=== PATIENT | female | born 2000 | race Hispanic/Latino ===

== ENCOUNTER 2024-08-18 21:31 | Emergency (ER) | payer OTHER ==
--- OUTSIDE RECORDS SUMMARY | 2024-08-18 21:34 | XMS REPORT | Continuity of Care Document ---
Author Name Unknown Address [address] [address] [place] [address] Organization [facility] [place] Address [address] [place] [address] Care Team Providers Care Barley Steeper Name Role Phone PCP, PATIENT DOES NOT HAVE A Primary Care Physic irene YAMEL Price Attending Clinician YAMEL Haddad Attending Clinician Kolton Neal Ang - Db Attending Clinician Yamel Price MD Attending Clinician [phone] Payers Payer Name Policy Type Policy Number Effective Date Expirati on Date Source [facility] [id number] 2024 00:00:00 Problems Condition Name Condition Details Condition Category Status Onset Date Resolution Date Last Treatment Date Treating Clinician Comments Source Bleeding in early Bleeding in early Disease Active 08-16 00:00: 00 [facility] with inconclusi ve viability, single or unspecifie d fetus with inconclusi ve viability, single or unspecifie d fetus Disease Active 08-16 00:00: 00 [facility] Allergies, Adverse Reactions, Alerts Allergy Name Allergy Type Status Severity Reaction(s) Onset Date Inactive Date Treating Clinician Comments Source NO KNOWN ALLERGIE S Drug Class Active [facility] Social History Social Habit Start Date Stop Date Quantity Comments Source [facility] use and exposure 2024-08-16 00:00:00 2024-08-16 00:00:00 Smokeless tobacco non-user [facility] Alcoholic beverage intake 2024-08-16 00:00:00 2024-08-16 00:00:00 Ex-drinker (finding) [facility] History of Social function 2024-08-16 00:00:00 2024-08-16 00:00:00 [facility] Sex assigned at 2000 00:00:00 2000 00:00:00 [facility] Smoking Status Start Date Stop Date Source Never smoked tobacco [facility] Encounters Start Date/Time End Date/Time Encounter Type Admission Type Attending [facility] Care Facility Care Department Encounter ID Source 2024-08-23 14:00:00 2024-08-23 14:00:00 Outpatient R GLADYS Aguilar, YAMEL IVETH-MARY S, YAMEL [facility] [id number] [facility] 2024-08-18 13:00:00 2024-08-18 13:15:00 Intensive Care Specialist Visit Lab, Ang - Db Iveth-Mary s, Yamel Lab, Ang - Db [facility] [id number] [facility] 2024-08-18 13:00:00 2024-08-18 13:00:00 Outpatient R GLADYS S, YAMEL LAZARO-MARY S, YAMEL [facility] [id number] [facility] 2024-08-17 00:00:00 2024-08-17 12:34:35 Telephone Iveth-Mary aguilar Yamel [facility] [id number] [facility] 2024-08-16 14:30:00 2024-08-16 14:37:49 Outpatient R IVETH-MARY S, YAMEL GLADYS YAMEL Aguilar [facility] [id number] [facility] Notes Date/Time Note Provider Source 2024-08-18 13:00:00 Images from the original note were not included. Venipuncture collection performed by clean technique on the left anticubitus. Total of 1 attempts were made. Slight pressure and a bandage/dressing were applied to the site(s). The patient experienced no complications. The following specimens were processed according to instructions and sent to [facility] laboratories per lab order on 08/18/2024 : LT BLUE SST 1 RED LAV PPT DK GREEN (LiHep) DK GREEN (SodH) ROLLINS DK BLUE (K2) DK BLUE (S) ACD Blood Culture NIPT/NTD [facility] 2024-08-17 12:33:05 Name and verified, pt is aware orders have been placed for repeat hcg testing. Lab appt made for 08/18 Pt verbalized understanding. Anna Rene RN 08/17/2024 12:34 PM [facility] 2024-08-17 11:06:08 Pt received a message on mychart from Yvette that she needs to repeat her HCG labs on but there are no orders for her to do that. Nishi Velazquez [facility]
[2024-08-18 22:52] LABS: Absolute Eosinophils 0.2 K/uL (0-0.5); Absolute Lymphocytes (CBC) 2.2 K/uL (0.7-4.9); Absolute Monocytes 0.5 K/uL (0.1-1.3); Absolute Neutrophil 4.7 K/uL (1.8-8.0); Basophils % 0.5 % (0-1.3); Eosinophils % 2.3 % (0-4.4); Hematocrit 39.9 % (36.0-45.0); Hemoglobin 13.6 g/dL (12.0-15.0); Lymphocytes % 28.4 % (15.3-44.8); MCH 31.5 pg (27.0-35.0); MCHC 34.1 g/dL (32.0-36.0); MCV 92.2 fL (80-100); MPV 7.9 fL (7.6-11.3); Monocytes % 6.6 % (3.3-12.3); Neutrophils % 62.2 % (41.7-73.7); Platelets 267 thou/uL (152-406); RBC Red Blood Cell Count 4.32 M/uL (3.86-4.86); Red Cell Distribution Width 12.8 % (12.1-15.2)
[2024-08-18 23:07] LABS: Specific Gravity 1.016 (1.005-1.030); Sqamous Epithelial <5 /HPF (None Seen); Urine Bacteria None Seen /HPF (<20); Urine Bilirubin NEGATIVE (Negative); Urine Blood 3+ (OVER) (Negative); Urine Clarity Turbid (Clear); Urine Color Light-Yellow (Yellow); Urine Culture Reflex Order NOT NEEDED; Urine Glucose NEGATIVE (Negative); Urine Ketones NEGATIVE (Negative); Urine Microscopic Reflex YN ORDER UMIC; Urine Nitrite NEGATIVE (Negative); Urine Protein NEGATIVE (Negative); Urine Urobilinogen Normal (Normal)
--- NOTE | 2024-08-19 00:28 | ER ---
Nurse's Notes [facility] Name: Mago Servin Age: 24 yrs Sex: Female : 2000 Arrival Date: 08/18/2024 Time: 21:31 Bed 6 Private MD: Diagnosis: First trimester vaginal bleeding Presentation: 08/18 22:06 Chief complaint: Patient states: I am 7 weeks and I started bleeding Thursday, jb4 and today around 1700 it started getting worse. Coronavirus screen: At this time, the client does not indicate any symptoms associated with coronavirus-19. Ebola Screen: No symptoms or risks identified at this time. Initial Sepsis Screen: Does the patient meet any 2 criteria? No. Patient's initial sepsis screen is negative. Does the patient have a suspected source of infection? No. Patient's initial sepsis screen is negative. Risk Assessment: Do you want to hurt yourself or someone else? Patient reports no desire to harm self or others. Onset of symptoms was August 18, 2024. Transition of care: patient was not received from another setting of care. 22:06 Method Of Arrival: Ambulatory jb4 22:06 Acuity: LAUREN 3 jb4 Triage Assessment: 22:08 General: Appears in no apparent distress. comfortable, Behavior is cooperative, jb4 anxious. Pain: Denies pain. Neuro: Level of Consciousness is awake, alert, obeys commands, Oriented to person, place, time, situation. Cardiovascular: Patient's skin is warm and dry. Respiratory: Airway is patent Respiratory effort is even, unlabored, Respiratory pattern is regular, symmetrical. : Reports vaginal bleeding that is bright red, with clots, moderate flow. Derm: Skin is intact, Skin is pink, warm \T\ dry. Musculoskeletal: Circulation, motion, and sensation intact. Range of motion: intact in all extremities. 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 - Infectious Disease History:: Denies. - Social history:: Smoking status: Patient denies any tobacco usage or history of. - Family history:: not pertinent. Screenin:32 [facility] ED Fall Risk Assessment (Adult) History of falling in the last 3 months, jr13 including since admission No falls in past 3 months (0 pts) Confusion or Disorientation Yes (5 pts) Intoxicated or Sedated Yes (3 pts) Impaired Gait Yes (1 pt) Mobility Assist Device Used No (0 pt) Altered Elimination No (0 pt) Score/Fall Risk Level 0 - 2 = Low Risk. Abuse screen: Denies threats or abuse. Denies injuries from another. Nutritional screening: No deficits noted. Tuberculosis screening: No symptoms or risk factors identified. Assessment: 22:32 General: Appears uncomfortable, Behavior is calm, cooperative, appropriate for age. jr13 22:36 Pain: Complains of pain in Lower abdomen area Pain at worst was 5 out of 10 on a pain jr13 scale. Pain began suddenly. 22:36 Neuro: No deficits noted. Level of Consciousness is Oriented to person, place, time, jr13 situation, Appropriate for age. Cardiovascular: Reports None Capillary refill < 3 seconds. Respiratory: Airway is patent. GI: Abdomen is round Reports lower abdominal pain, Patient reports lower abdominal pain and states she has some vaginal bleeding with clots. : No deficits noted. Vital Signs: 22:06 BP 141 / 78; Pulse 97; Resp 16; Temp 98.7(O); Pulse Ox 100% on R/A; Weight 86.64 kg jb4 (R); Height 5 ft. 2 in. (R); Pain 0/10; 22:30 BP 115 / 79; Pulse 101; Resp 18; Pulse Ox 100% on R/A; jr13 23:13 BP 116 / 67; Pulse 90; Resp 18 S; Pulse Ox 100% on R/A; br2 08/19 00:24 BP 99 / 55; Pulse 99; Resp 17; Pulse Ox 98% on R/A; jr13 08/18 22:06 Body Mass Index 34.93 (86.64 kg, 157.48 cm) jb4 08/18 22:06 Pain Scale: Adult jb4 ED Course: 08/18 21:37 Patient arrived in ED. gm2 21:55 Jesus Whiteside MD is Attending Physician. rt 22:08 Triage completed. jb4 22:08 Arm band placed on right wrist. jb4 22:32 Patient has correct armband on for positive identification. Placed in gown. Bed in low jr13 position. Call light in reach. Side rails up X 1. Adult w/ patient. Provided Education on:. Provided Education on:. 22:45 Basic Metabolic Panel Sent. jr13 22:45 CBC with Diff Sent. jr13 22:47 Quantitative Hcg Sent. jr13 22:48 Inserted saline lock: 22 gauge in right antecubital area, using aseptic technique. jr13 Blood collected. Flushed with 10 mL NS. 22:59 US Transvaginal Ob In Process Unspecified. EDMS 08/19 00:40 No provider procedures requiring assistance completed. IV discontinued, intact, jr13 bleeding controlled, No redness/swelling at site. Pressure dressing applied. Administered Medications: No medications were administered Medication: 08/18 22:32 VIS not applicable for this client. jr13 Outcome: 08/19 00:28 Discharge ordered by . rt 00:40 Discharged to home ambulatory, with family, jr13 00:40 Condition: stable 00:40 Discharge instructions given to patient, family, Instructed on discharge instructions, follow up and referral plans. Demonstrated understanding of instructions, follow-up care, 00:42 Patient left the ED. jr13 Signatures: Dispatcher [employer] EDDC Hima Mac, RN RN jb4 Jesus Whiteside MD MD rt Luciana Obrien gm2 Lauren Wan RN RN br2 Malathi Carson, RN RN jr13
--- NOTE | 2024-08-19 00:28 | EDPHYS ---
Physician Documentation [facility] Name: Mago Servin Age: 24 yrs Sex: Female : 2000 Arrival Date: 08/18/2024 Time: 21:31 Bed 6 Private MD: ED Physician Jesus Whiteside HPI: 08/19 00:09 This 24 yrs old Female presents to ER via Ambulatory with complaints of rt Vaginal Bleeding, 7 weeks preg. 00:09 Patient is roughly 7 weeks , felt vaginal bleeding starting last week, saw her rt OB, apparently watching it. States that the bleeding had worsened today with some mild lower abdominal cramping, passed a few clots. States that is less than a period. Denies urinary symptoms, other acute complaints, she states that her blood type is a positive. Symptoms are moderate severity, no other aggravating or alleviating factors.. 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 - Infectious Disease History:: Denies. - Social history:: Smoking status: Patient denies any tobacco usage or history of. - Family history:: not pertinent. ROS: 08/19 00:09 Constitutional: Negative for fever, chills, and weight loss, Cardiovascular: Negative rt for chest pain, palpitations, and edema, Respiratory: Negative for shortness of breath, cough, wheezing, and pleuritic chest pain, Abdomen/GI: Negative for abdominal pain, nausea, vomiting, diarrhea, and constipation, Skin: Negative for injury, rash, and discoloration, Neuro: Negative for headache, weakness, numbness, tingling, and seizure, : Positive for vaginal bleeding, Negative for urinary symptoms, Exam: 00:09 Constitutional: This is a well developed, well nourished patient who is awake, alert, rt and in no acute distress. Head/Face: Normocephalic, atraumatic. Chest/axilla: Normal chest wall appearance and motion. Nontender with no deformity. No lesions are appreciated. Cardiovascular: Regular rate and rhythm with a normal S1 and S2. No gallops, murmurs, or rubs. Normal PMI, no JVD. No pulse deficits. Respiratory: Lungs have equal breath sounds bilaterally, clear to auscultation and percussion. No rales, rhonchi or wheezes noted. No increased work of breathing, no retractions or nasal flaring. Abdomen/GI: Soft, non-tender, with normal bowel sounds. No distension or tympany. No guarding or rebound. No evidence of tenderness throughout. Skin: Warm, dry with normal turgor. Normal color with no rashes, no lesions, and no evidence of cellulitis. MS/ Extremity: Pulses equal, no cyanosis. Neurovascular intact. Full, normal range of motion. Neuro: Awake and alert, GCS 15, oriented to person, place, time, and situation. Cranial nerves II-XII grossly intact. Motor strength 5/5 in all extremities. Sensory grossly intact. Cerebellar exam normal. Normal gait. Vital Signs: 08/18 22:06 BP 141 / 78; Pulse 97; Resp 16; Temp 98.7(O); Pulse Ox 100% on R/A; Weight 86.64 kg jb4 (R); Height 5 ft. 2 in. (R); Pain 0/10; 22:30 BP 115 / 79; Pulse 101; Resp 18; Pulse Ox 100% on R/A; jr13 23:13 BP 116 / 67; Pulse 90; Resp 18 S; Pulse Ox 100% on R/A; br2 08/19 00:24 BP 99 / 55; Pulse 99; Resp 17; Pulse Ox 98% on R/A; jr13 08/18 22:06 Body Mass Index 34.93 (86.64 kg, 157.48 cm) jb4 08/18 22:06 Pain Scale: Adult jb4 MDM: 08/18 22:17 Medical Screening Exam initiated rt 08/19 01:06 Differential diagnosis: Threatened AB, inevitable AB, subchorionic hemorrhage. Data rt reviewed: vital signs, nurses notes, lab test result(s), radiologic studies. Counseling: I had a detailed discussion with the patient and/or guardian regarding the historical points, exam findings, and any diagnostic results supporting the discharge/admit diagnosis, lab results, radiology results, the need for outpatient follow up. 08/18 22:20 Order name: Basic Metabolic Panel; Complete Time: 23:32 rt 08/18 22:20 Order name: CBC with Diff; Complete Time: 23:32 rt 08/18 22:20 Order name: Quantitative Hcg; Complete Time: 23:32 rt 08/18 22:20 Order name: Urinalysis w/ reflexes; Complete Time: 23:32 rt 08/18 22:20 Order name: US Transvaginal Ob rt 08/18 22:20 Order name: IV Saline Lock; Complete Time: 22:33 rt 08/18 22:20 Order name: Labs collected and sent; Complete Time: 22:33 rt 08/18 22:20 Order name: NPO; Complete Time: 22:42 rt Administered Medications: No medications were administered Disposition Summary: 08/19/24 00:28 Discharge Ordered Notes: Location: Home rt Problem: new rt Symptoms: are unchanged rt Condition: Stable rt Diagnosis - First trimester vaginal bleeding rt Followup: rt - With: Private Physician - When: 2 - 3 days - Reason: Discharge Instructions: - Discharge Summary Sheet rt - Vaginal Bleeding During , First Trimester rt Forms: - Medication Reconciliation Form rt - Antibiotic Education rt - Prescription Opioid Use rt - Patient Portal Instructions rt - Leadership Thank You Letter rt Signatures: Dispatcher [employer] Hima Weeks, RN RN jb4 Jesus Whiteside MD MD rt
[2024-08-19 00:54] VITALS: TEMP 98.7
[2024-08-19 01:12] VITALS: BP 99/55; O2SAT 98
--- NOTE | 2024-08-19 07:53 | RAD REPORT ---
PROCEDURE: US , Transvaginal CLINICAL INDICATION: The patient is 24 years old and is Female; bleeding Bed Name: 6 TECHNIQUE: Real-time transvaginal obstetrical ultrasound of the maternal pelvis and a first trimester with image documentation. Transvaginal imaging was used for better evaluation of the fetus and adnexa. COMPARISON: No relevant prior studies available. FINDINGS: GESTATION: Gestational sac with yolk sac demonstrated within the endometrial cavity with po le, but no protocardiac pulsatility demonstrated. Estimated gestational age 6 weeks 0 days +/- 4 days by CRL (0.35 cm). Mean sac diameter = 0.9 cm, estimated gestational age 5 weeks 6 days +/- 10 days. PLACENTA/AMNIOTIC FLUID: Small subchorionic hematoma demonstrated. UTERUS/CERVIX: Nabothian cysts incidentally demonstrated. No myometrial mass. The uterus measures 7.5 x 4.9 x 6 cm. OVARIES: Unremarkable No mass. FREE FLUID: No free fluid. IMPRESSION: 1. Small subchorionic hematoma demonstrated. 2. Single IUP with pole, but no protocardiac pulsatility demonstrated. Estimated gestational ag e 6 weeks 0 days +/- 4 days by CRL (0.35 cm). Findings favor a viable early IUP, though recommend short-term follow-up pelvic ultrasound in 10-14 days and trending beta hCG levels. Electronically signed by: Abe Gutierrez MD 08/19/2024 12:16 AM CDT Due to temporary technical issues with the PACS/mWater reporting system, reports are being lita d by the in-house radiologist without review as a courtesy to ensure prompt reporting the interpreting radiologist is fully responsible for the content of the report. Transcribed Date/Time: 08/19/2024 7:53 AM
== END 2024-08-19 00:42 | disposition home or self-care (01) ==
LOC: ER 21:31
DX: O20.9 Hemorrhage in early pregnancy, unspecified (principal); Z3A.01 Less than 8 weeks gestation of pregnancy
CPT/HCPCS: 36415; 76817; 80048; 81001; 84702; 85025; 99284